=== PATIENT | female | born 2000 | race Caucasian/White ===

== ENCOUNTER 2023-11-28 09:14 | Emergency (ER) | payer OTHER ==
[2023-11-28 09:22] VITALS: BP 110/68; PULSE 68; RESP 18; TEMP 98.4; BMI 20.7
[2023-11-28 09:57] LABS: BASO % 0.6 % (0-2.0); EOS % 0.7 % (0-4.5); HEMOGLOBIN 12.8 GM/dL (10.7-15.3); LYMPH % 30.9 % (8-40); MCH 29.4 pg (25.7-33.7); MCHC 33.7 g/dl (32.0-36.0); MEAN CELL VOLUME 87.2 fl (80-96); MEAN PLT VOLUME 8.1 fl (7.5-11.1); MONO % 7.5 % (3.8-10.2); NEUT % 60.3 % (42.8-82.8); PLATELET COUNT 197 10^3/uL (134-434); RBC 4.36 M/mm3 (3.60-5.2); RDW 12.6 % (11.6-15.6); WHITE BLOOD COUNT 5.1 K/mm3 (4.0-10.0)
[2023-11-28 09:59] LABS: HCG,QUALITATIVE URINE Positive
[2023-11-28 10:02] LABS: EPI CELLS >36 /uL (0-25.1); HYALINE CASTS 1 /uL (0-3.1); URINE APPEARANCE CLEAR; URINE BACTERIA 400 /uL (0-1359); URINE BILIRUBIN NEGATIVE (NEGATIVE); URINE COLOR YELLOW; URINE GLUCOSE (UA) NEGATIVE (NEGATIVE); URINE KETONE NEGATIVE (NEGATIVE); URINE LEUK ESTERASE 1+ (NEGATIVE); URINE NITRITE NEGATIVE (NEGATIVE); URINE PROTEIN NEGATIVE (NEGATIVE); URINE RBC 18 /uL (0-23.9); URINE WBC 25 /uL (0-25.8)
[2023-11-28 10:22] LABS: POTASSIUM 3.6 mmol/L (3.5-5.1)
[2023-11-28 10:24] LABS: CALCIUM 8.8 mg/dL (8.5-10.1)
[2023-11-28 10:25] LABS: ALBUMIN 3.6 g/dl (3.4-5.0); BLOOD UREA NITROGEN 7.6 mg/dL (7-18)
[2023-11-28 10:28] LABS: CREATININE 0.4 mg/dL (0.55-1.3)
[2023-11-28 10:29] LABS: BILIRUBIN,TOTAL 0.4 mg/dL (0.2-1); TOT PROT 7.3 g/dl (6.4-8.2)
[2023-11-28] MEDS ORDERED: NITROFURANTOIN MONOHYD/M-CRYST 100 MG CAPSULE PO ONE (11:01)
== END 2023-11-28 15:54 | disposition home or self-care (01) ==
LOC: JER 09:14
DX: O20.9 Hemorrhage in early pregnancy, unspecified (principal); Z3A.12 12 weeks gestation of pregnancy
CPT/HCPCS: 36415; 76817-TC; 80053; 81003; 84702; 84703; 85025; 86850; 86900; 86901; 87086; 99284-25

== ENCOUNTER 2023-11-30 09:27 | Emergency (ER) | payer OTHER ==
[2023-11-30 09:38] VITALS: BMI 16.0
[2023-11-30] MEDS ORDERED: METHOTREXATE SODIUM/PF 25 MG/ML VIAL IM ONE (15:27)
[2023-11-30 16:23] VITALS: BP 94/60; PULSE 69; RESP 20; TEMP 98.9
== END 2023-11-30 16:43 | disposition home or self-care (01) ==
LOC: JERFT 09:27
PROC: 3E00X05 Introduction of Other Antineoplastic into Skin and Mucous Membranes, External Approach (ICD-10-PCS; principal; 2023-11-30)
DX: O03.9 Complete or unspecified spontaneous abortion without complication (principal); O26.899 Other specified pregnancy related conditions, unspecified trimester; R10.9 Unspecified abdominal pain
CPT/HCPCS: 36415; 76817-TC; 84702; 99284-25; J9260

== ENCOUNTER 2023-12-07 07:53 | Emergency (ER) | payer OTHER ==
[2023-12-07 08:03] VITALS: RESP 18; BMI 17.2
[2023-12-07 11:15] VITALS: BP 92/56; PULSE 65; TEMP 98.8
== END 2023-12-07 10:38 | disposition home or self-care (01) ==
LOC: JER 07:53
DX: O02.1 Missed abortion (principal)
CPT/HCPCS: 36415; 84702; 99283-25